=== PATIENT | male | born 1965 | race Two or more races ===

== ENCOUNTER 2024-09-02 07:55 | Emergency (ER) | payer BC, OTHER ==
[~2024-09-02] VITALS: Ht 162.6 cm; Wt 82.2 kg
--- NOTE | 2024-09-02 08:23 | ED.PDOC ---
Musculoskeletal HPI Comments A 59 YEAR OLD MALE PRESENTS TO THE ED WITH CHIEF COMPLAINT OF RIGHT LEG PAIN. PATIENT REPORTS THAT HE HAS BEEN EXPERIENCING RIGHT BUTTOCK PAIN THAT RADIATES DOWN HIS RIGHT LEG FOR THE PAST 6 DAYS. PATIENT RELAYS THAT HE VISITED URGENT CARE YESTERDAY WITH NO RELIEF WITH MOTRIN 600MG GIVEN. PATIENT DENIES ANY REDNESS, WARMTH, NUMBNESS, WEAKNESS, ABD PAIN OR CHEST PAIN. NO FURTHER SYMPTOMS OR CONCERN. PT IS ALERT, ORIENTATION X4 WITH NORMAL GAIT. Chief Complaint: Lower Extremity Time Seen by MD: 08:15 Primary Care Provider: NONE Reviewed Notes: Nurses Notes, Medications, Allergies Allergies: Coded Allergies: NO KNOWN ALLERGIES (Unverified , 09/02/24) Home Meds Active Scripts Tramadol HCl (Tramadol HCl) 50 Mg Tab, 50 MG PO BID, #24 TAB Prov:DONELL NEVAREZ 09/02/24 Prednisone (Prednisone) 20 Mg Tab, 40 MG PO DAILY, #20 TAB Prov:DONELL NEVAREZ 09/02/24 Information Source: Patient Mode of Arrival: Wheelchair Location: Right Extremity Location: Leg Timing: Days Prehospital treatment: None Severity: Moderate Able to Move Extremity: Yes Bear Weight: Limited Pain: Moderate Mechanism: Spontaneous Circumstances: Spontaneous Onset of Symptoms: Spontaneous Symptoms: Pain DVT Risk Factors: NONE Last Tetanus: UTD Associated signs and symptoms: Back pain, Thigh pain, Leg pain Past Medical History PAST MEDICAL HISTORY: Denies Surgical History: Denies all surgeries Family History Family History: Reviewed,noncontributory to illness Social History Smoker: Non-Smoker Alcohol: Denies ETOH Use Drugs: Denies Drug Use Lives In: Home Constitutional: denies: chills, diaphoresis, fatigue, fever, malaise, sweats, weakness, others EENTM: denies: blurred vision, double vision, ear bleeding, ear discharge, ear drainage, ear pain, ear ringing, eye pain, eye redness, hearing loss, mouth pain, mouth swelling, nasal discharge, nose bleeding, nose congestion, nose pain, photophobia, tearing, throat pain, throat swelling, voice changes, others Respiratory: denies: cough, hemoptysis, orthopnea, SOB at rest, shortness of breath, SOB with excertion, stridor, wheezing, others Cardiovascular: denies: chest pain, dizzy spells, diaphoresis, Dyspnea on exertion, edema, irregular heart beat, left arm pain, lightheadedness, pa lpitations, PND, syncope, others Gastrointestinal: denies: abdomen distended, abdominal pain, blood streaked bowels, constipated, diarrhea, dysphagia, difficulty swallowing, hematemesis, melena, nausea, poor appetite, poor fluid intake, rectal bleeding, rectal pain, vomiting, others Genitourinary: denies: burning, dysuria, flank pain, frequency, hematuria, incontinence, penile discharge, penile sore, pain, testicle pain, testicle swelling, urgency, others Neurological: denies: dizziness, fainting, headache, left sided numbness, left sided weakness, numbness, paresthesia, pre-existing deficit, right sided numbness, right sided weakness, seizure, speech problems, tingling, tremors, weakness, others Musculoskeletal: reports: back pain, muscle pain, others (RIGHT THIGH/LEG PAIN); denies: gout, joint pain, joint swelling, muscle stiffness, neck pain Integumetry: denies: bruises, change in color, change in hair/nails, dryness, laceration, lesions, lumps, rash, wounds, others Allergic/Immunocompromised: denies: Difficulty Healing, Frequent Infections, Hives, Itching, others Hematologic/Lymphatic: denies: anemia, blood clots, easy bleeding, easy bruising, swollen glands, others Endocrine: denies: excessive hunger, excessive sweating, excessive thirst, excessive urination, flushing, intolerance to cold, intolerance to heat, unexplained weight gain, unexplained weight loss, others Psychiatric: denies: anxiety, bipolar disorder, depression, hopeless, panic disorder, schizophrenia, sleepless, suicidal, others All Other Systems: Reviewed and Negative Physical Exam General Appearance: Mild Distress, Normal HEENT: Normal ENT Inspection, PERRL/EOMI Neck: Full Range of Motion, Non-Tender, Normal, Normal Inspection Respiratory: Chest Non-Tender, Lungs Clear, No Accessory Muscle Use, No Respiratory Distress, Normal Breath Sounds Cardiovascular: No Edema, No JVD, No Murmur, No Gallop, Normal Peripheral Pulses, Regular Rate/Rhythm Breast Exam: Deferred Gastrointestinal: No Organomegaly, Non Tender, No Pulsatile Mass, Normal Bowel Sounds, Soft Genitalia: Deferred Pelvic: Deferred Rectal: Deferred Extremities: No calf tenderness, Normal capillary refill, Normal inspection, Normal range of motion, No pedal edema, Tender (RIGHT BUTTOCK TO RIGHT LOWER LEG, NO ERYTHEMA, SWELLING AND DEFORMITY, NO DVT SIGNS. ) Musculoskeletal : Apperance: Normal Neurologic: Alert, subgrade roller operator II-XII nml as Tested, No Motor Deficits, Normal Affect, Normal Mood, No Sensory Deficits Cerebellar Function: Normal Reflexes: Normal Skin: Dry, Normal Color, Warm Peripheral Pulses: 2+ carotid (R), 2+ carotid (L), 2+ dorsalis pedis (R), 2+ dorsalis pedis (L) Lymphatic: No Adenopathy Was a procedure done? Was a procedure done?: No Differential Diagnosis EXT Differential Diagnosis: Sprain, Contusion, Strain, Other (DDD OF LOW BACK, S CIATICA PAIN ) X-Ray, Labs, Meds, VS Vital Signs Date Time Temp Pulse Resp B/P (MAP) Pulse Ox O2 Delivery O2 Flow Rate FiO2 09/02/24 08:00 98.9 101 18 138/69 (92) 98 98.9 Current Medications Medications (Trade) Dose Ordered Sig/Tova Route Start Time Stop Time Status Last Admin Acetaminophen/ Hydrocodone Bitart (Liberal 10/325MG Tab) 1 tab ONCE ONCE PO 09/02/24 08:30 09/02/24 08:31 DC 09/02/24 08:31 Ketorolac Tromethamine (Toradol Injection) 60 mg ONCE ONCE IM 09/02/24 08:30 09/02/24 08:31 DC 09/02/24 08:31 CT L-S SPINE: FINDINGS: No evidence of definite acute fracture, spinal dislocation, or significant appearing acute subluxation is seen. Mild disc osteophyte hypertrophy creates mild canal stenosis at L3-L4. Mild disc osteophyte hypertrophy at L5-S1 creates mild canal stenosis. 0.6 cm sclerotic lesion in the posterior left iliac wing. IMPRESSION: No definite CT evidence of acute fracture or dislocation of the bony lumbar spine. X-Ray, Labs, Meds, VS Comment EXTERNAL MEDICAL RECORDS REVIEWED: [NONE] INDEPENDENT HISTORIANS: [NONE] SOCIAL DETERMINANTS OF HEALTH: [NONE] LABS ORDERED: NONE REVIEWED AND INTERPRETED RESULTS: CT L-S SPINE IMAGING ORDERED: CT L-S SPINE TREATMENTS ORDERED: NORCO 10/325MG PO, TORADOL 60MG IM PROCEDURES PERFORMED: NONE CRITICAL CARE TIME: NONE I HAVE DISCUSSED THE PATIENT WITH THE ATTENDING PHYSICIAN DR. JIANG AND HE AGREES WITH THE PATIENT'S PLAN OF CARE AND DISPOSITION. BASED ON HISTORY OF PRESENT ILLNESS, AND PHYSICAL EXAM, PATIENT WILL BE DISCHAR GED HOME. DISCUSSED PLAN FOR DISCHARGE HOME. RX: ULTRAM AND PREDNISONE SHARED DECISION MAKING: DISCUSSED WITH PATIENT THAT THEIR WORKUP WAS NORMAL. PATIENT INSTRUCTED TO FOLLOW UP WITH PRIMARY CARE PROVIDER IN 1-2 DAYS FOR RE- EVALUATION OF SYMPTOMS. PATIENT VERBALIZES UNDERSTANDING TO RETURN TO ED FOR NEW OR WORSENING SYMPTOMS OR IF FOLLOW UP WITH PCP CANNOT BE OBTAINED. PATIENT FEELS COMFORTABLE GOING HOME AT THIS TIME. ALL QUESTIONS ADDRESSED AT TIME OF DISCHARGE. Time of 1ST Reevaluation: 09:10 Reevaluation 1ST: Improved Patient Education/Counseling: Diagnosis, Treatment, Need For Follow Up Family Education/Counseling: Diagnosis, Treatment, Need For Follow Up Medical Screening: No EMC Exist At This Time Departure 1 Departure Time of Disposition: 09:10 Impression: Primary Impression: Spinal stenosis of lumbar region Qualified Codes: M48.061 - Spinal stenosis, lumbar region without neurogenic claudication Additional Impression: Right lumbar radiculopathy Disposition: 01 HOME / SELF CARE / HOMELESS Condition: Stable Additional Instructions: FOLLOW-UP WITH PCP IN 1 TO 2 DAYS. TAKE MEDICATIONS PRESCRIBED. RETURN TO ED FOR ANY NEW OR WORSENING SYMPTOMS. e-Prescriptions Tramadol HCl (Tramadol HCl) 50 Mg Tab 50 MG PO BID, #24 TAB Prov: DONELL NEVAREZ 09/02/24 Prednisone (Prednisone) 20 Mg Tab 40 MG PO DAILY, #20 TAB Prov: DONELL NEVAREZ 09/02/24 Discharged With: Self, Spouse Critical Care Note Critical Care Time?: No Stability Stability form required: No Heart Score Heart Score: Heart Score Response (Comments) Value History N/A 0 EKG N/A 0 Age N/A 0 Risk Factors N/A 0 Troponin N/A 0 Total 0 I personally scribed for DONELL NEVAREZ ([email or web address]) on 09/02/24 at 08:23. Electronically submitted by Shawn Pinon ([email or web address]). I personally scribed for DONELL NEVAREZ ([email or web address]) on 09/02/24 at 09:04. Electronically submitted by Shawn Pinon ([email or web address]). DONELL NEVAREZ September 02, 2024 08:23
[2024-09-02] MEDS: KETOROLAC TROMETH 60MG/2ML VIAL IM ONE (08:31)
[2024-09-02] MEDS: HYDROcodone-ACET 10/325MG TAB PO ONE (08:31)
--- NOTE | 2024-09-02 08:59 | DVH ---
EXAM: CT LS SPINE WO CONTRAST HISTORY: RIGHT BUTTOCK PAIN TO RIGHT LOWER LEG COMPARISON: None CTDIvol 19.61 mGy, DLP 708.39 mGy*cm. TECHNIQUE: Multiple axial CT images of the spine were obtained using bone algorithm. Axial and tovar l reformatting was done. Bone and soft tissue windows were reviewed. FINDINGS: No evidence of definite acute fracture, spinal dislocation, or significant appearing acute subluxatio n is seen. Mild disc osteophyte hypertrophy creates mild canal stenosis at L3-L4. Mild disc osteophyte hypertrophy at L5-S1 creates mild canal stenosis. 0.6 cm sclerotic lesion in the posterior left iliac wing. IMPRESSION: No definite CT evidence of acute fracture or dislocation of the bony lumbar spine.
[2024-09-02] MEDS ORDERED: TRAM-626 PO (09:07)
[2024-09-02] MEDS ORDERED: PRED20TA2 PO (09:07)
[2024-09-02 09:20] VITALS: BP 138/74; PULSE 102; RESP 18; TEMP 98.2; O2SAT 99
== END 2024-09-02 09:20 | disposition home or self-care (01) ==
LOC: ER 07:55
DX: M48.061 Spinal stenosis, lumbar region without neurogenic claudication (principal); M54.16 Radiculopathy, lumbar region; Z79.52 Long term (current) use of systemic steroids
CPT/HCPCS: 72131; 96372; 99285; J1885